=== PATIENT | male | born 1965 | race Asian ===

== ENCOUNTER 2016-12-11 06:28 | Day surgery (SDC) | payer OTHER ==
[~2016-12-11] VITALS: Ht 172.7 cm; Wt 68.7 kg
[2016-12-11 07:27] VITALS: Ht 172.7 cm; Wt 68.7 kg
[2016-12-11] MEDS ORDERED: no home meds (07:34)
[2016-12-11] MEDS ORDERED: VERAPAMIL 5 MG INJ ONE (08:40)
[2016-12-11] MEDS ORDERED: MIDAZOLAM 1 MG/ML 2 ML INJ ONE ×2 (08:41→08:42)
[2016-12-11 09:06] VITALS: BP 111/79; PULSE 79; RESP 20
--- NOTE | 2016-12-11 11:18 | GILP ---
DATE OF PROCEDURE: PROCEDURE: Colonoscopy. INDICATION: A 51-year-old male undergoing this procedure for a colon cancer screening. He had an a ttack of diverticulitis almost 2 months ago. The risks of the procedure, related and unrelated comp lications, anesthetic risks, alternatives discussed. Informed consent was obtained. DESCRIPTION OF PROCEDURE: The patient was brought to the GI lab, sedated with 4 mg of Versed and 10 0 mcg of fentanyl. After optimum sedation, scope was passed with much ease into rectum, advanced th rough sigmoid, descending, transverse colon all the way into cecum. Appendiceal orifice and IC valv e identified, ____ into terminal ileum which was normal. The rest of the colon appeared normal. T here were a few diverticula in the cecum and also a bit more diverticula in the left side of the col on. Retroversion done. Small hemorrhoids identified. Scope was straightened out and removed with good patient tolerance. IMPRESSION 1. Diverticulosis, left side of the colon and also in the cecum. 2. Clarity and cleanliness was good. 3. Small hemorrhoids. 4. Normal terminal ileum. PLAN: Stay on a high fiber diet. Dictated By: DANIEL RING/KATHRYN Conf#: [id number] DID#: [id number] CC: Fox Adame;*EndCC*
== END 2016-12-11 12:00 | disposition home or self-care (01) ==
LOC: GIL 06:28
PROVIDERS: ATTEND Internal Medicine Gastroenterology
DX: Z12.11 Encounter for screening for malignant neoplasm of colon (principal); K64.9 Unspecified hemorrhoids; K57.90 Diverticulosis of intestine, part unspecified, without perforation or abscess without bleeding
CPT/HCPCS: 45378; J2250; Z7610